=== PATIENT | male | born 1950 ===

== ENCOUNTER 2018-04-15 09:15 | Emergency (ER) | payer MEDICARE ==
[2018-04-15 09:23] VITALS: BMI 28.5
[2018-04-15 09:26] VITALS: RESP 18
[2018-04-15] MEDS ORDERED: Sodium Chloride 0.9% 1,000 ML IV ONE (10:01)
[2018-04-15] MEDS ORDERED: Sodium Chloride 0.9% 1,000 ML ONE (10:10)
--- NOTE | 2018-04-15 10:15 | C.PDOC ---
History Of Present Illness 67 y/o male with PMHx of HTN comes in for evaluation of intermittent episode of dizziness developing since yesterday. Patient states he was attending physical therapy for left shoulder tendonitis, and after a certain manipulation began feeling dizzy. As per patient " they checked blood pressure and it was high at the time". Pt admits, had few more episodes of dizziness yesterday. At present time, pt denies dizziness. Otherwise, pt denies severe headache, vrtigo, visual changes, focal deficits, neck pain, chest pain, SOB, palpitations, dyspnea, diaphoresis, abd. pain, nausea, vomiting, back pain, denies any other active complaints. Ambulate to Ed for evaluation, not in any apparent distress. Pt sts , took his BP medication this AM Time Seen by Provider: 04/15/18 09:28 Chief Complaint (Nursing): High Blood Pressure History Per: Patient History/Exam Limitations: no limitations Onset/Duration Of Symptoms: Intermittent Episodes Current Symptoms Are (Timing): Still Present Associated Symptoms: Dizziness Past Medical History Reviewed: Historical Data, Nursing Documentation, Vital Signs Vital Signs: Last Vital Signs Temp 98.0 F 04/15/18 09:22 Pulse 72 04/15/18 09:22 Resp 18 04/15/18 09:22 BP 149/96 H 04/15/18 09:22 Pulse Ox 96 04/15/18 11:09 - Medical History PMH: Asthma, HTN Other Surgeries: Left shoulder surgery Family History: States: No Known Family Hx - Social History Hx Alcohol Use: No Hx Substance Use: No - Immunization History Hx Tetanus Toxoid Vaccination: No Hx Influenza Vaccination: Yes Hx Pneumococcal Vaccination: Yes Review Of Systems Constitutional: Negative for: Fever, Chills Eyes: Negative for: Vision Change Cardiovascular: Negative for: Chest Pain, Palpitations Respiratory: Negative for: Shortness of Breath Gastrointestinal: Negative for: Nausea, Vomiting Neurological: Positive for: Dizziness. Negative for: Weakness, Numbness, Headache Physical Exam - Physical Exam Appears: Well, Non-toxic, No Acute Distress Skin: Normal Color, Warm, No Rash, No Ecchymosis Head: Normacephalic Eye(s): bilateral: PERRL Nose: No Flaring Oral Mucosa: Moist Throat: No Erythema, No Drooling Neck: Trachea Midline, No Midline Cervical Tenderness, No Paracervical Tenderness, Supple Chest: Symmetrical, No Deformity, No Tenderness Cardiovascular: Rhythm Regular, No Murmur, No JVD Respiratory: No Decreased Breath Sounds, No Accessory Muscle Use, No Rales, No Rhonchi, No Stridor, No Wheezing Gastrointestinal/Abdominal: Soft, No Tenderness, No Distention, No Rebound Back: No CVA Tenderness Extremity: Normal ROM, No Tenderness, No Pedal Edema, Capillary Refill (less than 2sec), No Deformity Pulses: Left Radial: Normal, Right Radial: Normal Neurological/Psych: Oriented x3, Normal Speech, Normal Cognition, Cerebellar Signs, Normal Motor, Normal Sensation, Normal Reflexes Gait: Steady ED Course And Treatment - Laboratory Results Result Diagrams: 04/15/18 10:24 04/15/18 10:24 Lab Interpretation: No Acute Changes ECG: Interpreted By Me, Viewed By Me ECG Rhythm: Sinus Rhythm ECG Interpretation: Normal Interpretation Of ECG: SR@60/min,NAD, no acute T wave or ST-T changes O2 Sat by Pulse Oximetry: 96 (RA) Pulse Ox Interpretation: Normal - Radiology CXR: Viewed By Me, Read By Radiologist CXR Interpretation: Yes: No Acute Disease Progress Note: EKG, labs, and chest x-ray ordered and reviewed. Patient started on IV fluids. On re-evaluation, pt remained to be asymptomatic. Pt is afebrile , hemodynamicaly stable. Non-toxic. Ambulatory in Ed with stable gait. PulseOx 96% RA. ENT: no acute finidgs. Neck: Supple, (-) JVD, (-) carotid bruits B/L. Lungs: CTA B/L, BS equla B/L>. CVS: (+)S1S2, reg. Abd: benign. Neurologicaly intact. Blood work review, appears normal. Troponin- negative. EKG, CXR- no acute changes. Pt has clinical finidngs c/w dizziness, nos. Hx of HTN, normotensive at present time. Pt advised. ref. to F/u with PMD, card in 2 -3 days for re-evaluation. return to ED if any worsening or new changes. Disposition Counseled Patient/Family Regarding: Studies Performed, Diagnosis, Need For Followup - Disposition Referrals: Sahra Landaverde APN [Advanced Practice Nurse] - Disposition: HOME/ ROUTINE Disposition Time: 11:09 Condition: STABLE Additional Instructions: Take your HTN medication as prescribed No physical therapy for 1 week Follow up with PMD, Cardiology in 2-3 days for re-evaluation. return to Ed if any worsening or new changes. Instructions: High Blood Pressure (DC) Forms: [employer] (Taiwanese) Print Language: OCCITAN - Clinical Impression Clinical Impression: Hypertension, Dizziness - PA / TEACHER ADVISOR / Resident Statement MD/DO has reviewed & agrees with the documentation as recorded. - Scribe Statement The provider has reviewed the documentation as recorded by the Scribe (Adalgisa Li) All medical record entries made by the Scribe were at my direction and personally dictated by me. I have reviewed the chart and agree that the record accurately reflects my personal performance of the history, physical exam, medical decision making, and the department course for this patient. I have also personally directed, reviewed, and agree with the discharge instructions and disposition.
[2018-04-15 10:34] LABS: BASO % 0.6 % (0.0-2.0); EOS # 0.4 K/uL (0.0-0.7); EOS % 4.9 % (0.0-4.0); HEMOGLOBIN 15.8 g/dL (12.0-18.0); LYMPH # 2.6 K/uL (1.0-4.3); LYMPH % 29.4 % (20.0-40.0); MEAN CELL VOLUME 91.3 fL (80.0-94.0); MEAN CORPUSCULAR HEMOGLOBIN 30.6 pg (27.0-31.0); MEAN CORPUSCULAR HGB CONC 33.5 g/dL (33.0-37.0); MEAN PLATELET VOLUME 8.7 fL (7.2-11.7); MONO # 0.7 K/uL (0.0-0.8); MONO % 7.6 % (0.0-10.0); NEUT % 57.5 % (50.0-75.0); RBC 5.15 Mil/uL (4.40-5.90); RED CELL DISTRIBUTION WIDTH 14.5 % (11.5-14.5); WHITE BLOOD COUNT 8.8 K/uL (4.8-10.8)
[2018-04-15 10:39] LABS: PROTHROMBIN TIME 11.4 SECONDS (9.7-12.2)
--- NOTE | 2018-04-15 10:41 | RAD ---
HISTORY: Chest pain COMPARISON: No prior. TECHNIQUE: Chest PA and lateral FINDINGS: LUNGS: Hyperinflation, manifestations of COPD. No active pulmonary disease. PLEURA: No significant pleural effusion identified. No pneumothorax apparent. CARDIOVASCULAR: Normal. OSSEOUS STRUCTURES: No significant abnormalities. VISUALIZED UPPER ABDOMEN: Normal. OTHER FINDINGS: None. IMPRESSION: No active disease.
[2018-04-15 11:00] LABS: URINE BILIRUBIN NEGATIVE (NEGATIVE); URINE BLOOD NEGATIVE (NEGATIVE); URINE CLARITY Clear (Clear); URINE COLOR Straw (YELLOW); URINE GLUCOSE (UA) NORMAL (Normal); URINE LEUKOCYTE ESTERASE NEG Leu/uL (Negative); URINE PROTEIN NEGATIVE (NEGATIVE); URINE UROBILINOGEN NORMAL mg/dL (0.2-1.0)
[2018-04-15 11:04] LABS: ALB/GLOB RATIO 1.2 (1.0-2.1); ALBUMIN 4.4 g/dL (3.5-5.0); ALT/SGPT 42 U/L (21-72); AST/SGOT 40 U/L (17-59); BLOOD UREA NITROGEN 7 mg/dL (9-20); CALCIUM 9.6 mg/dl (8.6-10.4); GFR AFRICAN-AMERICAN > 60; GFR NON-AFRICAN AMERICAN > 60
[2018-04-15 12:15] VITALS: BP 150/90; PULSE 61; TEMP 98.1; O2SAT 97
--- NOTE | 2018-04-16 22:30 | CARD ---
APPROVED REPORT EKG Measurement Heart [id number] ND [id number] <Conclusion> Normal sinus rhythm Normal ECG
== END 2018-04-15 12:08 | disposition home or self-care (01) ==
LOC: C.ER 09:15
DX: I10 Essential (primary) hypertension (principal); R42 Dizziness and giddiness
CPT/HCPCS: 71046; 80053; 81001; 84484; 85025; 85610; 85730; 93005; 96360; 99285; J7030